=== PATIENT | female | born 1985 | race Caucasian/White ===

== ENCOUNTER → 2017-06-19 | Outpatient (CLI) | payer BC ==
[~2017-06-19] MED LIST: PRENTAB26 PO
[2017-06-19 15:53] LABS: URINE APPEARANCE CLEAR (CLEAR); URINE BILIRUBIN NEG (NEG); URINE COLOR YELLOW; URINE NITRITE NEG (NEG); URINE PH 5.5 (4.5-7.5); URINE SPECIFIC GRAVITY 1.022 (1.000-1.030); UROBILINOGEN NEG (NEG)
[2017-06-19 16:02] LABS: MANUAL MICROSCOPIC REQUIRED? NO; REVIEW REQ? NO
== END | disposition home or self-care (01) ==
LOC: C.LABSPEC 14:20
PROVIDERS: ATTEND Obstetrics & Gynecology
DX: Z34.81 Encounter for supervision of other normal pregnancy, first trimester (principal)

== ENCOUNTER → 2017-06-26 | Outpatient (CLI) | payer BC ==
[2017-06-30 05:51] LABS: CHLAMYDIA TRACH RNA*** NOT DETECTED (NOT DETECTED); GC (NEIS GONORRHOEAE)RNA** NOT DETECTED (NOT DETECTED)
== END | disposition home or self-care (01) ==
LOC: C.LABSPEC 15:01
PROVIDERS: ATTEND Obstetrics & Gynecology
DX: O09.299 Supervision of pregnancy with other poor reproductive or obstetric history, unspecified trimester (principal)

== ENCOUNTER → 2017-08-21 | Outpatient (CLI) | payer BC, OTHER ==
[2017-08-21 15:07] LABS: GTGD 50 Grams
== END | disposition home or self-care (01) ==
LOC: C.LAB1850 12:35
PROVIDERS: ATTEND Obstetrics & Gynecology
DX: Z34.82 Encounter for supervision of other normal pregnancy, second trimester (principal)

== ENCOUNTER → 2017-09-04 | Outpatient (CLI) | payer BC, OTHER | END | disposition home or self-care (01) | LOC: C.LAB1850 08:33 | PROVIDERS: ATTEND Obstetrics & Gynecology | DX: O28.1 Abnormal biochemical finding on antenatal screening of mother (principal); Z3A.00 Weeks of gestation of pregnancy not specified ==

== ENCOUNTER → 2017-11-18 | Outpatient (CLI) | payer BC, OTHER ==
[2017-11-18 10:39] LABS: HEMATOCRIT 38.7 % (37-47); HEMOGLOBIN 13.1 g/dL (12.0-16.0)
== END | disposition home or self-care (01) ==
LOC: C.LAB1850 08:54
PROVIDERS: ATTEND Obstetrics & Gynecology
DX: Z34.82 Encounter for supervision of other normal pregnancy, second trimester (principal); Z3A.00 Weeks of gestation of pregnancy not specified

== ENCOUNTER → 2017-11-20 | Outpatient (CLI) | payer BC, OTHER | END | disposition home or self-care (01) | LOC: C.LABSPEC 15:25 | PROVIDERS: ATTEND Obstetrics & Gynecology | DX: Z34.82 Encounter for supervision of other normal pregnancy, second trimester (principal) ==

== ENCOUNTER 2018-02-06 05:39 | Inpatient (IN) | payer BC, OTHER ==
[~2018-02-06] VITALS: Ht 170.2 cm; Wt 83.0 kg
[2018-02-06] MEDS ORDERED: LACTATED RINGER'S 1000ML 1,000 ML IV SCH (05:52)
[2018-02-06] MEDS ORDERED: LACTATED RINGER'S 1000ML 1,000 ML IV PRN (05:52)
[2018-02-06 06:10] VITALS: Ht 170.2 cm; Wt 83.0 kg
[2018-02-06] MEDS ORDERED: EpHEDrine SULFATE INJ 50 MG/ML AMP ONE (06:12)
[2018-02-06] MEDS ORDERED: BUPIVACAINE 0.25% 30 ML VIAL ONE (06:12)
[2018-02-06] MEDS ORDERED: FENTANYL CITRATE INJ 50 MCG/1 ML 2 ML VIAL ONE (06:12)
[2018-02-06] MEDS ORDERED: FENTANYL 2MCG/ML ROPIV 1.25MG/ML 100ML BAG EPI ONE (06:13)
[2018-02-06 06:22] LABS: HEMATOCRIT 40.5 % (37-47); HEMOGLOBIN 14.1 g/dL (12.0-16.0); MEAN CELL VOLUME 89.2 fL (80-100); MEAN CORPUSCULAR HEMOGLOBIN 31.1 pg (25-34); MEAN PLATELET VOLUME 9.7 fL (7.4-10.4); PLATELET COUNT 197 K/uL (130-400); RED CELL DISTRIBUTION WIDTH CV 13.9 % (11.5-14.5); RED CELL DISTRIBUTION WIDTH SD 46.1 fL (36.4-46.3); WHITE BLOOD COUNT 16.55 K/uL (4.8-10.8)
[2018-02-06 06:28] LABS: MEAN CORPUSCULAR HGB CONC 34.8 g/dl (32-36)
[2018-02-06] MEDS ORDERED: PENICILLIN G POTASSIUM IV 6 MU in DEXTROSE 5% 250ML 250 ML IV ONE (06:30)
[2018-02-06] MEDS ORDERED: PENICILLIN G POTASSIUM IV 6 MU in DEXTROSE 5% 250ML IV ONE (06:30)
[2018-02-06] MEDS ORDERED: NURSING VERBAL MED ORDER ONE (06:30)
[2018-02-06] MEDS ORDERED: PENICILLIN G POTASSIUM IV 3 MU in DEXTROSE 5% 100ML 100 ML IV PRN (06:30)
[2018-02-06] MEDS ORDERED: NALOXONE HCL INJ 1 MG in SODIUM CHLORIDE 0.9% 1000ML 1,000 ML IV PRN (06:57)
[2018-02-06] MEDS ORDERED: LACTATED RINGER'S 1000ML 500 ML IV PRN (06:57)
[2018-02-06] MEDS ORDERED: NALOXONE HCL INJ 0.4 MG/1 ML VIAL/CARP IV PRN (07:00)
[2018-02-06] MEDS ORDERED: FENTANYL 2MCG/ML ROPIV 1.25MG/ML 100ML BAG EPI PRN (07:00)
[2018-02-06] MEDS ORDERED: EpHEDrine SULFATE INJ 50 MG/ML AMP IV PRN (07:00)
[2018-02-06] MEDS ORDERED: ONDANSETRON INJ 2 MG/ML 2 ML VIAL IV PRN (07:00)
[2018-02-06] MEDS ORDERED: DiphenhydrAMINE HCL 50 MG/ML VIAL IV PRN (07:00)
[2018-02-06] MEDS ORDERED: NALBUPHINE HCL INJ 10 MG/ML AMP IV PRN (07:00)
[2018-02-06] MEDS ORDERED: PENICILLIN G POTASSIUM IV 3 MU in DEXTROSE 5% 100ML IV PRN (10:00)
[2018-02-06] MEDS ORDERED: OXYTOCIN 30 UNITS/500ML NSS IV ONE (11:01)
[2018-02-06] MEDS ORDERED: ACETAMINOPHEN 325 MG TAB PO PRN (11:30)
[2018-02-06] MEDS ORDERED: LANOLIN OINT EXT PRN (11:30)
[2018-02-06] MEDS ORDERED: IBUPROFEN 600 MG TAB PO PRN (11:30)
[2018-02-06] MEDS ORDERED: SUPERCREAM 0.870 % 15GM JAR EXT PRN (11:30)
[2018-02-06] MEDS ORDERED: DIPHTHERIA/TETANUS/PERTUSSIS 0.5 ML SYR/VIAL IM. ONE (11:30)
[2018-02-06] MEDS ORDERED: BENZOCAINE 20% AER SPR 82.5 GM CAN EXT PRN (11:30)
[2018-02-06] MEDS ORDERED: HYDROCORTISONE ACETATE 25 MG SUPP PR PRN (11:30)
[2018-02-06] MEDS ORDERED: OXYTOCIN 30 UNITS/500ML NSS IV PRN (11:30)
--- NOTE | 2018-02-06 11:55 | DELIVERY SUMMARY ---
DATE OF OPERATION: 02/06/2018 FINDINGS: Viable female with Apgars of 8 and 9, delivered over a midline second degree laceration. Cord blood samples obtained. Placenta delivered spontaneously. Laceration was repaired with 4-0 Vicryl in a routine fashion. ESTIMATED BLOOD LOSS: 300 mL. LABOR NOTE: The patient is a 32-year-old 4, para 1 with an EDC of 11 February at 39+ weeks gestational age. She presented to labor and delivery in active labor. The patient states that her contractions began at 0530 hours. She denied rupture of membranes or vaginal bleeding. The patient had a benign course. Blood type O positive. Antibody negative. Rubella immune. Hepatitis B negative. She had negative glucose tolerance test and a positive third trimester beta strep culture. Upon admission, the patient was 9 cm dilated, 100% effaced and active labor. Tracing was category 2. The patient desired an epidural. Anesthesia was consulted and an epidural was placed. Because of the GBS status, she received her penicillin 6 milliunits loading dose and then 3 milliunits every 4 hours of delivery. After her loading dose was in and the patient was comfortable, she had artificial rupture of membranes with clear fluid. She was fully dilated and began her second stage. She pushed for approximately 20 minutes, delivering a viable female infant. Cord was clamped and cut. Cord blood samples obtained. Placenta delivered spontaneously. Inspection of the perineum showed a midline second-degree laceration and a second-degree right labial laceration. Both of those were repaired with 4-0 Vicryl in a routine fashion. Estimated blood loss was 300 mL. Sponge and needle count was correct. I attest to the content of the Intraoperative Record and any orders documented therein. Any exception s are noted below.
[2018-02-06 15:15] VITALS: BP 116/74; PULSE 78; TEMP 36.9
--- NOTE | 2018-02-06 16:52 | Anesthesia Procedure Note ---
Anesthesia Epidural Removal Nt Date & Time Feb 06, 2018 at 16:52 Vital Signs Pain Intensity: 0.0 Vital Signs Past 12 Hours Date Time Temp Pulse Resp B/P (MAP) Pulse Ox O2 Delivery O2 Flow Rate FiO2 02/06/18 15:15 36.9 78 18 116/74 (88) Room Air 02/06/18 15:15 Room Air 02/06/18 14:45 Room Air Notes Mental Status: alert / awake / arousable, participated in evaluation Nausea / Vomiting: adequately controlled Pain: adequately controlled Airway Patency, RR, SpO2: stable & adequate BP & HR: stable & adequate Hydration State: stable & adequate Neuraxial Anesthesia: was administered Anesthetic Complications: no major complications apparent, pt satisfied with anesthetic care Epidural: removed without complications, with tip intact
[2018-02-06] MEDS: DOCUSATE SODIUM 100 MG CAP PO SCH (20:04)
[2018-02-06 20:10] VITALS: BP 121/73; PULSE 86; TEMP 36.7; O2SAT 97
[2018-02-07 00:40] VITALS: BP 124/67; PULSE 79; TEMP 36.7; O2SAT 97
[2018-02-07 04:40] VITALS: BP 121/72; PULSE 76; TEMP 36.7; O2SAT 98
[2018-02-07 06:57] LABS: HEMATOCRIT 38.1 % (37-47); HEMOGLOBIN 13.1 g/dL (12.0-16.0)
--- NOTE | 2018-02-07 07:38 | Progress Note ---
Subjective Feb 07, 2018. Subjective conversation w/ patient, physical exam Ambulation: ambulating normally Voiding: no voiding problems Passing Gas: Yes Diet Tolerance: Regular Diet Lochia: Moderate Feeding Type: Breast Feeding (and bottle feeding) Pain: Minimal, /10, well controlled Comment: Seen and assessed at bedside, no acute events overnight Review of Systems Constitutional: No fever, No chills Respiratory: No cough, No shortness of breath Cardiac: No chest pain, No edema Abdomen: No pain, No nausea, No vomiting no headaches or calf pain Objective Vital Signs Date Time Temp Pulse Resp B/P (MAP) Pulse Ox O2 Delivery O2 Flow Rate FiO2 02/07/18 04:40 36.7 76 16 121/72 (88) 98 Room Air 02/07/18 00:40 36.7 79 16 124/67 (86) 97 Room Air 02/07/18 00:40 Room Air 02/06/18 20:10 36.7 86 16 121/73 (89) 97 Room Air 02/06/18 15:15 36.9 78 18 116/74 (88) Room Air 02/06/18 15:15 Room Air 02/06/18 14:45 Room Air Physical Exam General Appearance: WELL-APPEARING, NO APPARENT DISTRESS Respiratory/Chest: lungs clear, normal breath sounds Cardiovascular: regular rate, rhythm, no edema, no murmur Abdomen: normal bowel sounds, non tender, soft Fundus: Firm, Non-Tender, Relation to Umbilicus (2 below) Extremities: normal range of motion, non-tender, normal inspection, no pedal edema, no calf tenderness Laboratory Results Last 24 Hours Test 02/07/18 06:25 Hemoglobin 13.1 g/dL Hematocrit 38.1 % Medications Current Inpatient Medications Medications (Trade) Dose Ordered Sig/Adrián Route Start Time Stop Time Status Last Admin Dose Admin Lactated Ringer's 1,000 ml @ 125 mls/hr Q8H IV 02/06/18 05:52 02/08/18 05:51 Lactated Ringer's 1,000 ml @ 999 mls/hr Q1H1M PRN IV 02/06/18 05:52 03/08/18 05:51 02/06/18 06:36 999 MLS/HR Oxytocin (Pitocin IV) 30 units UD PRN IV 02/06/18 11:30 03/08/18 11:29 Benzocaine (Dermoplast Aero Spr) 1 appln PRN PRN EXT 02/06/18 11:30 03/08/18 11:29 Cocaine HCl (Supercream 0.870% Cr) BID PRN EXT 02/06/18 11:30 02/20/18 11:29 Hydrocortisone Acetate (Anusol Hc Supp) 25 mg BID PRN MS 02/06/18 11:30 03/08/18 11:29 Lanolin (Lanolin Oint) PRN PRN EXT 02/06/18 11:30 03/08/18 11:29 Prenat Multivit/ Archeologist Classical/Iron/Folic Ac ( Vitamin Tab) 1 tab DAILY PO 02/07/18 08:00 03/09/18 07:59 Ibuprofen (Motrin Tab) 600 mg Q4H PRN PO 02/06/18 11:30 03/08/18 11:29 02/06/18 20:05 600 MG Acetaminophen (Tylenol Tab) 650 mg Q6H PRN PO 02/06/18 11:30 03/08/18 11:29 Bisacodyl (Dulcolax Tab) 5 mg 20 PO 02/07/18 20:00 02/07/18 20:01 Docusate Sodium (coLACE CAP) 100 mg BID PO 02/06/18 20:00 03/08/18 19:59 02/06/18 20:04 100 MG Ferrous Sulfate (Feosol Tab) 325 mg DAILY PO 02/07/18 08:00 03/09/18 07:59 Assessment and Plan Post- Day#: 1 Continue Routine Care: 32 yo PPD 1 s/p Pt doing well Continue routine care Encourage ambulation, breast feeding Pain control with rx prn Resident Physician Supervision Note: I interviewed and examined the patient. Discussed with Dr. Francis and agree with findings and plan as documented in the note. Any exceptions or clarifications are listed here: routine care Documented By: Torrey Cerda Resident Tracking Resident Involvement: Resident Care Provided Care Provided: OB Delivery
[2018-02-07] MEDS ORDERED: FERROUS SULFATE 325 MG TAB PO SCH (08:00)
[2018-02-07] MEDS ORDERED: PRENATAL VITAMIN TAB PO SCH (08:00)
[2018-02-07 08:45] VITALS: BP 122/77; PULSE 80; TEMP 36.5
[2018-02-07] MEDS: DOCUSATE SODIUM 100 MG CAP PO SCH ×2 (08:56→20:00)
--- NOTE | 2018-02-07 10:25 | Discharge Instructions ---
Discharge Instructions Date of Service Feb 07, 2018. Admission Reason for Admission: LABOR Discharge Discharge Diagnosis / Problem: normal delivery Discharge Goals Goal(s): Routine recovery after delivery Medications Continue Dispensed Medications: supercream, tucks, lansinoh Activity Recommendations Activity Limitations: per Instructions/Follow-up section . Instructions / Follow-Up Instructions / Follow-Up ACTIVITY RECOMMENDATIONS: * Gradual return to full activity over the next 2-3 weeks. * No lifting - nothing heavier than baby over the next 2-3 weeks. * Do not engage in vigorous exercise, sexual activity or sports until cleared by your physician. * Do not drive or operate any motorized equipment until cleared by your physician. * You may shower/bathe daily. MEDICATIONS: For discomfort or pain, you may use Acetaminophen (Tylenol), Ibuprofen (Advil), or Naproxen (Aleve) following the package directions. For constipation you may use Colace following the package directions. BREAST CARE: If you are not breast feeding: * Wear a supportive bra 24 hours a day for one to two weeks. * Avoid stimulating your breasts and nipples as much as possible during the first few weeks after delivery. * When taking a shower, have the warm water hit your back, not breasts. * When your breasts feel full, apply ice packs. Usually three to four times a day helps ease the discomfort. * Take a mild pain medication (Tylenol / Motrin) when you are uncomfortable. If breast feeding: * Use breast milk to lubricate nipples. Lansinoh cream may be used for sore nipples. You do not need to remove cream prior to breast feeding. If using a different brand of cream, check the label for directions regarding removal of cream prior to nursing. * Wear a supportive bra. * If having problems with breasts or breast feeding, call a reporting consultant or your health care provider. EPISIOTOMY CARE: After delivery, if you have an episiotomy (stitches), the following steps will ease discomfort and aid healing. * For the first 24 hours after delivery, place ice packs next to your episiotomy to help reduce swelling. * After the first 24 hour-period, sitz baths, either portable or in the tub, are suggested. A shower with a shower arm sprayed over the episiotomy may be comforting. * Gisela care should be done after each voiding and bowel movement. Squirt warm water from a plastic bottle over the perineum (region of the body between the anus and urinary opening) and pat dry. * Use Dermoplast to ease discomfort. Shake container. [place] directly over the episiotomy. Place a Tucks on a clean sanitary pad next to your episiotomy. SPECIAL CARE INSTRUCTIONS: When you are discharged from the hospital, it is important for you to follow the instructions listed below: * During the first week at home, you should be able to care for yourself and your baby. In addition, the usual light household activities are encouraged. * Limit your activities to the way you feel. Do not try to clean the house or move furniture. Be sensible. * If you actively engage in sports and have done so up until the time of your delivery, you may resume these activities as soon as you feel able. This may take up to one month or even longer. Use good judgment. * Continue to take your vitamins for at least six weeks after the of your baby. * Your diet need not be limited unless you were on a special diet before your delivery. Breast-feeding mothers need around 2500 calories per day and at least 64-80 ounces of fluid per day (8 to 10 glasses). * You should eat foods from the four major food groups. Crash diets or fad diets are to be avoided. Eating lean meats, fresh fruits and vegetables, low-fat dairy products, high fiber foods and a regular exercise program, will help you get back to your pre- weight without putting your health at risk. * Constipation is sometimes a problem after delivery. Take a mild laxative as needed. If breast feeding, Milk of Magnesia is acceptable to use. You may use a suppository or Fleets enema if no episiotomy. * A daily shower or tub bath is suggested. Be sure to thoroughly and gently dry the perineum. * A bloody vaginal discharge will usually continue until around four weeks post . A small amount of bleeding may continue for as long as six weeks. Vaginal discharge changes from the bright red bleeding after delivery to pink then brownish and finally yellowish-pink before becoming white and disappearing. * Bleeding may increase with activity. Your first period may come in 4-8 weeks. If you are breast feeding, your period may be delayed even longer. * [place] (sex) can begin whenever both you and your partner feel comfortable and do not have any form of genital infection. It is recommended that you wait at least six weeks for internal and external healing to occur. If you have questions, please talk to your health care practitioner. A condom should be used to prevent infection and . * Foreplay, gentle intercourse and lubrication is very important the first several times to prevent pain. A water-based lubricant such as K-Y jelly or Astroglide may be used. * If you have RH negative blood and your baby is RH positive, you will receive RHOGAM by injection prior to discharge. The nurse will give you a card to keep with you that has the date and place that you received RHOGAM after delivery. * During your care, you had a Rubella screen done to check for the presence of rubella antibodies in your blood. If your test was negative, you will receive a Rubella vaccine prior to discharge. This vaccine may cause a fever, soreness at the injection site and flu-like symptoms. If these symptoms persist, notify your health care practitioner. is not advised for one month after a Rubella vaccine. * Verbalizes understanding of car seat law as reviewed with patient nursing. * Car Seat hand-out given and reviewed with patient by nursing. * Shaken baby information reviewed with patient by nursing. Call you doctor if: * Heavy bleeding (saturating several pads an hour) or passing clots the size of your fist. * A fever >101 degrees F (38.3 degrees C) on two occasions four hours apart and /or chills. * Unusual pain in the pelvic or vaginal areas. * "Baby Blues" lasting longer than two weeks. If you have any questions or concerns, call your health care practitioner at . FOLLOW UP VISIT: * Please call the office at to schedule a 6 week examination. It is important you keep this appointment. It is important for you to make arrangements for either yearly or twice yearly check-ups thereafter. Current Hospital Diet Patient's current hospital diet: Gluten Free Diet, Low Lactose Diet Discharge Diet Recommended Diet: Regular OB Diet Pending Studies Studies pending at discharge: no Medical Emergencies . Who to Call and When: Medical Emergencies: If at any time you feel your situation is an emergency, please call 911 immediately. . Non-Emergent Contact Non-Emergency issues call your: Mental Health Director . . "Provider Documentation" section prepared by Brianna Blakely. .
[2018-02-07 15:50] VITALS: BP 130/80; PULSE 80; TEMP 36.6
[2018-02-07] MEDS ORDERED: BISACODYL 5 MG TABEC PO SCH (20:00)
== END 2018-02-07 20:05 | disposition home or self-care (01) | DRG 775 ==
LOC: C.OPB 05:39 → C.LD 05:39 → C.OPB 05:53 → C.OBG 15:38 → EDSTATUS 02-09 05:38
PROVIDERS: ADMIT Obstetrics & Gynecology; ATTEND Obstetrics & Gynecology
PROC: 10E0XZZ Delivery of Products of Conception, External Approach (ICD-10-PCS; principal; 2018-02-06)
PROC: 0KQM0ZZ Repair Perineum Muscle, Open Approach (ICD-10-PCS; principal; 2018-02-06)
DX: O70.1 Second degree perineal laceration during delivery (principal); Z22.330 Carrier of Group B streptococcus; Z87.59 Personal history of other complications of pregnancy, childbirth and the puerperium; Z3A.39 39 weeks gestation of pregnancy; Z37.0 Single live birth